=== PATIENT | female | born 1990 | race Two or more races ===

== ENCOUNTER 2023-06-10 10:23 | Observation (INO) | payer MEDICAID ==
[~2023-06-10] VITALS: Ht 162.6 cm; Wt 81.6 kg
[~2023-06-10 10:23] MED LIST: PREN-96 PO
[2023-06-10] MEDS ORDERED: LACTATED RINGER'S 1,000 ML IV ONE (12:00)
== END 2023-06-10 12:41 | disposition home or self-care (01) ==
LOC: LDRP 10:23 → UNDOADMOB 10:23 → LDRP 10:33 → UNDODISOB 12:41
PROVIDERS: ADMIT Obstetrics & Gynecology; ATTEND Obstetrics & Gynecology
DX: O36.8130 Decreased fetal movements, third trimester, not applicable or unspecified (principal); Z3A.37 37 weeks gestation of pregnancy
CPT/HCPCS: 59025; 76818; 81002; 94760; G0378

== ENCOUNTER 2023-06-18 04:05 | Inpatient (IN) | payer MEDICAID ==
[2023-06-17 10:12] LABS: Basophils # (auto) 0 10 ^3/uL (0-0.2); Basophils % (auto) 0.4 % (0.0-2.0); Eosinophils # (auto) 0.1 10 ^3/uL (0-0.8); Eosinophils % (auto) 0.8 % (0.0-7.0); Hematocrit 34.8 % (36.0-46.0); Hemoglobin 11.6 g/dL (12.2-16.2); Lymphocytes # (auto) 1.7 10 ^3/uL (0.4-5.4); Lymphocytes % (auto) 21.9 % (10.0-50.0); Mean Corpuscular Hemoglobin 29.8 pg (28.0-32.0); Mean Corpuscular Hgb Conc. 33.4 g/dL (32.0-36.0); Mean Corpuscular Volume 89.1 fL (80.0-100.0); Monocytes # (auto) 0.4 10 ^3/uL (0-1.3); Monocytes % (auto) 4.9 % (0.0-12.0); Neutrophils # (auto) 5.6 10 ^3/uL (1.6-8.6); Red Cell Distribution Width 14.7 % (11.8-14.3); White Blood Cell 7.7 10^3/uL (4.4-10.8)
[2023-06-17 10:17] LABS: Urine WBC None Seen /hpf (0 - 5)
[2023-06-17 10:30] LABS: INR 0.93 (0.9-1.15); Partial Thromboplastin Time 28.3 SEC (24.5-34.5); Prothrombin Time 9.8 sec (9.3-11.8)
[2023-06-17 10:35] LABS: Alanine Aminotransferase 14 U/L (7-40); Albumin 3.8 g/dL (3.2-4.8); Alkaline Phosphatase 182 U/L (46-116); Anion Gap 9 (5-15); Aspartate Aminotransferase 20 U/L (13-40); BUN/Creatinine Ratio 11.4 (10.0-20.0); Bilirubin, Total 0.3 mg/dL (0.2-1.0); Blood Urea Nitrogen 5 mg/dL (9-23); Calcium 9.1 mg/dL (8.5-10.1); Carbon Dioxide 20 mmol/L (20-30); Chloride 108 mmol/L (98-107); Glucose 85 mg/dL (74-106); Potassium 3.7 mmol/L (3.5-5.1); Sodium 137 mmol/L (136-145); Total Protein 6.7 g/dL (5.7-8.2)
[2023-06-17 10:40] LABS: Urine Bacteria FEW /hpf (None Seen); Urine Blood Negative /uL (Negative); Urine Clarity Clear (Clear); Urine Color Colorless (Yellow); Urine Protein, UAD Negative (Negative); Urine Specific Gravity 1.011 (1.001-1.035); Urine Urobilinogen Normal (Negative); Urine pH 7.5 (5.0-8.0)
[2023-06-17 10:43] LABS: Amphetamine Screen, Urine Neg (NEGATIVE)
[2023-06-17 10:44] LABS: Barbiturate Scree,Urine Neg (NEGATIVE); Benzodiazephine Screen, Urine Neg (NEGATIVE); Cannabinoid Screen, Urine Neg (NEGATIVE); Cocaine Screen, Urine Neg (NEGATIVE); Opiate Scree,Urine Neg (NEGATIVE); Phencyclidine Screen, Urine Neg (NEGATIVE)
[~2023-06-18] VITALS: Ht 160 cm; Wt 84.4 kg
[2023-06-18] VITALS (15 sets, daily range): BP systolic 95–122; BP diastolic 42–74; PULSE 56–96; RESP 15–18; TEMP 97.5–98; O2SAT 96–100
[2023-06-18] MEDS ORDERED: METOCLOPRAMIDE HCL 5MG/ml INJ 2ml VIAL IV ONE (04:30)
[2023-06-18] MEDS ORDERED: ceFAZolin 2 GM/D5W100ml 100 ML IV ONE (04:30)
[2023-06-18] MEDS ORDERED: LACTATED RINGER'S 1,000 ML IV ONE (04:30)
[2023-06-18] MEDS ORDERED: SODIUM CITR/CITRIC ACID ORAL SOLN 30 ML PO ONE (04:30)
[2023-06-18] MEDS: LACTATED RINGER'S 1,000 ML IV SCH ×3 (05:52→23:29)
[2023-06-18] MEDS ORDERED: SUCCINYLCHOLINE CHLORIDE 20 MG/ML 10ML VIAL IV ONE (06:41)
[2023-06-18] MEDS ORDERED: ROCURONIUM 10MG/ML 10ML VIAL IV ONE (06:41)
[2023-06-18] MEDS ORDERED: TETRACAINE 1% INJ 2 ML VIAL IJ ONE (06:41)
[2023-06-18] MEDS ORDERED: oxyTOCIN 10 UNIT/ML 10ML VIAL ONE (06:44)
[2023-06-18] MEDS ORDERED: SODIUM CHLORIDE LOCK 10 ML ONE ×2 (06:44→06:45)
[2023-06-18] MEDS ORDERED: MORPHINE SULF PF 5 MG/10 ML VIAL ONE (06:44)
[2023-06-18] MEDS ORDERED: ONDANSETRON HCL 4 MG/2 ML VIAL ONE (06:44)
[2023-06-18] MEDS ORDERED: fentaNYL CITRATE 100 MCG/2 ML VL ONE (06:44)
[2023-06-18] MEDS ORDERED: MIDAZOLAM HCL 2MG/2ML 2ml VIAL (1mg/ml) ONE (06:44)
[2023-06-18] MEDS ORDERED: DexAMETHasone SOD PHOS 10MG/1ML VIAL INJ ONE (06:44)
[2023-06-18] MEDS ORDERED: EPINEPHrine HCL 1 MG/1 ML AMP ONE (06:44)
[2023-06-18] MEDS ORDERED: BUPIVACAINE/DEXTROSE MPF 0.75% 2 ML AMP IT ONE (06:44)
[2023-06-18] MEDS ORDERED: ePHEDrine SULFATE 50 MG/ML AMP ONE (06:45)
[2023-06-18 07:06] LABS: RPR Non Reactive (Non Reactive)
[2023-06-18] MEDS ORDERED: METHYLERGONOVINE MALEATE 0.2 MG/ML AMP IM ONE (07:49)
[2023-06-18] MEDS ORDERED: ceFAZolin 1GM/50ML 50 ML IV ONE ×2 (08:15→15:00)
[2023-06-18] MEDS ORDERED: ONDANSETRON HCL 4 MG/2 ML VIAL IV PRN (08:15)
[2023-06-18] MEDS ORDERED: SIMETHICONE 80 MG CHEWABLE TABLET PO PRN (08:15)
[2023-06-18] MEDS ORDERED: HYDROmorphone HCL 2 MG/ML VL/or syr IV PRN ×3 (08:15→08:30)
[2023-06-18] MEDS ORDERED: GUM (CHEWING) 1 GUM CHEW CHEW ONE (08:15)
[2023-06-18] MEDS ORDERED: LACT. RINGERS/OXYTOCIN 20UNITS 1,000 ML IV ONE (08:15)
[2023-06-18] MEDS ORDERED: MORPHINE SULFATE INJ 2 MG/ml SYRG IV PRN (08:30)
[2023-06-18] MEDS ORDERED: METOCLOPRAMIDE HCL 5MG/ml INJ 2ml VIAL IV PRN (08:30)
[2023-06-18] MEDS ORDERED: diphenhdrAMINE HCL 50 MG/1 ML VL IV PRN (12:30)
[2023-06-18] MEDS: ACETAMINOPHEN IV 1000 MG/100ML (10MG/ML) IV PRN (15:26)
[2023-06-18] MEDS: KETOROLAC TROMETH 30 MG/ML 1ML VIAL IV PRN (19:59)
[2023-06-18] MEDS ORDERED: DOCUSATE SOD 100 MG CAP PO SCH (22:00)
[2023-06-19] VITALS (10 sets, daily range): BP systolic 97–117; BP diastolic 51–74; PULSE 53–76; RESP 16–18; TEMP 97.7–98.7; O2SAT 96–100
[2023-06-19] MEDS: KETOROLAC TROMETH 30 MG/ML 1ML VIAL IV PRN (01:44)
[2023-06-19] MEDS: ACETAMINOPHEN IV 1000 MG/100ML (10MG/ML) IV PRN (04:10)
[2023-06-19] MEDS: LACTATED RINGER'S 1,000 ML IV SCH (04:30)
[2023-06-19 05:27] LABS: Basophils # (auto) 0.1 10 ^3/uL (0-0.2); Basophils % (auto) 0.5 % (0.0-2.0); Eosinophils # (auto) 0.1 10 ^3/uL (0-0.8); Eosinophils % (auto) 0.8 % (0.0-7.0); Hemoglobin 8.4 g/dL (12.2-16.2); Lymphocytes # (auto) 2.1 10 ^3/uL (0.4-5.4); Lymphocytes % (auto) 21.2 % (10.0-50.0); Mean Corpuscular Hemoglobin 30.1 pg (28.0-32.0); Mean Corpuscular Hgb Conc. 33.5 g/dL (32.0-36.0); Mean Corpuscular Volume 89.7 fL (80.0-100.0); Monocytes # (auto) 0.7 10 ^3/uL (0-1.3); Monocytes % (auto) 6.9 % (0.0-12.0); Neutrophils # (auto) 7.1 10 ^3/uL (1.6-8.6); Neutrophils % (auto) 70.6 % (37.0-80.0); Red Blood Cells 2.79 10^6/uL (4.0-5.20); Red Cell Distribution Width 14.9 % (11.8-14.3)
[2023-06-19] MEDS: IBUPROFEN 600 MG TAB PO SCH ×3 (06:00→18:00)
[2023-06-19] MEDS ORDERED: HYDROcodone-ACET 5/325MG TAB PO PRN ×2 (06:00)
[2023-06-19] MEDS ORDERED: BISACODYL 10 MG RECT SUPP PR PRN (08:00)
[2023-06-19] MEDS: FERROUS SULFATE 325mg EC TAB PO SCH ×2 (09:52→22:33)
[2023-06-19] MEDS: DOCUSATE CALCIUM 240 MG CAP PO SCH (09:52)
[2023-06-19] MEDS: DOCUSATE SOD 100 MG CAP PO SCH ×2 (09:52→22:34)
[2023-06-19] MEDS: HYDROcodone-ACET 5/325MG TAB PO PRN ×3 (09:53→22:45)
[2023-06-19] MEDS: SIMETHICONE 80 MG CHEWABLE TABLET PO SCH ×3 (11:38→22:34)
[2023-06-19] MEDS: IBUPROFEN 800 MG TAB PO PRN (14:26)
[2023-06-20 03:00] VITALS: BP 121/73; PULSE 73; RESP 18; TEMP 99.5; O2SAT 98
[2023-06-20] MEDS: HYDROcodone-ACET 5/325MG TAB PO PRN ×3 (03:38→14:45)
[2023-06-20 07:00] VITALS: BP 119/60; PULSE 71; RESP 16; TEMP 98.8; O2SAT 98
[2023-06-20] MEDS: IBUPROFEN 800 MG TAB PO PRN (07:20)
[2023-06-20] MEDS: DOCUSATE SOD 100 MG CAP PO SCH ×2 (09:35→22:11)
[2023-06-20] MEDS: DOCUSATE CALCIUM 240 MG CAP PO SCH (09:35)
[2023-06-20] MEDS: FERROUS SULFATE 325mg EC TAB PO SCH ×2 (09:35→22:11)
[2023-06-20 11:00] VITALS: BP 118/78; PULSE 68; RESP 16; TEMP 98.3; O2SAT 98
[2023-06-20] MEDS: IBUPROFEN 600 MG TAB PO SCH ×4 (11:16→19:09)
[2023-06-20] MEDS: SIMETHICONE 80 MG CHEWABLE TABLET PO SCH ×4 (11:18→22:11)
[2023-06-20 15:00] VITALS: BP 124/79; PULSE 84; RESP 16; TEMP 99.3; O2SAT 96
[2023-06-20 18:45] VITALS: BP 117/79; PULSE 70; RESP 16; TEMP 98.7; O2SAT 96
[2023-06-20 23:30] VITALS: BP 129/69; PULSE 78; RESP 16; TEMP 98; O2SAT 96
[2023-06-21] MEDS: HYDROcodone-ACET 5/325MG TAB PO PRN (01:47)
[2023-06-21 03:05] VITALS: BP 138/81; PULSE 68; RESP 16; TEMP 98.1; O2SAT 95
[2023-06-21] MEDS: IBUPROFEN 600 MG TAB PO SCH ×2 (06:00)
[2023-06-21] MEDS: SIMETHICONE 80 MG CHEWABLE TABLET PO SCH (06:00)
[2023-06-21 06:50] VITALS: BP 131/71; PULSE 82; RESP 16; TEMP 99.2; O2SAT 95
[2023-06-21] MEDS: IBUPROFEN 800 MG TAB PO PRN (07:24)
[2023-06-21] MEDS ORDERED: DOCU-265 PO (08:19)
[2023-06-21] MEDS ORDERED: IBU600T PO (08:19)
[2023-06-21] MEDS ORDERED: HYDR-4902 PO (08:19)
[2023-06-21] MEDS ORDERED: PREN-96 PO (09:14)
[2023-06-21] MEDS ORDERED: FER325T PO (09:16)
[2023-06-21] MEDS ORDERED: FERR1TAB36 PO (09:16)
[2023-06-21] MEDS ORDERED: TETANUS-DIPTH-ACEL PERTUSSIS 0.5ML SYR Tdap IM ONE (09:45)
[2023-06-21] MEDS: DOCUSATE SOD 100 MG CAP PO SCH (10:03)
[2023-06-21] MEDS: DOCUSATE CALCIUM 240 MG CAP PO SCH (10:03)
[2023-06-21] MEDS: FERROUS SULFATE 325mg EC TAB PO SCH (10:03)
[2023-06-22 18:06] LABS: Treponema pallidum Ab (FTA-Ab) Non Reactive (Non Reactive)
== END 2023-06-21 10:33 | disposition home or self-care (01) | DRG 539 ==
LOC: LDRP 04:05
PROVIDERS: ADMIT Obstetrics & Gynecology; ATTEND Nurse Practitioner Women's Health
PROC: 0UB70ZZ Excision of Bilateral Fallopian Tubes, Open Approach (ICD-10-PCS; 2023-06-18)
PROC: 10D00Z1 Extraction of Products of Conception, Low, Open Approach (ICD-10-PCS; principal; 2023-06-18 07:15)
PROC: 3E0234Z Introduction of Serum, Toxoid and Vaccine into Muscle, Percutaneous Approach (ICD-10-PCS; 2023-06-21)
DX: O34.211 Maternal care for low transverse scar from previous cesarean delivery (principal); R71.0 Precipitous drop in hematocrit; O62.2 Other uterine inertia; O99.214 Obesity complicating childbirth; Z37.0 Single live birth; Z3A.39 39 weeks gestation of pregnancy; Z30.2 Encounter for sterilization; O99.02 Anemia complicating childbirth; Z23 Encounter for immunization
CPT/HCPCS: 36415; 80053; 80307; 81001; 81002; 85025; 85610; 85730; 86592; 86850; 86870; 86900; 86901; 90715; 94760; 94762; 96361; 96365; 96366; 96372; 96374; G0378; J0131; J0171; J0330; J0690; J1100; J1885; J2250; J2405; J2590